=== PATIENT | male | born 1990 | race Caucasian/White ===

== ENCOUNTER 2021-11-06 17:24 | Emergency (ER) | payer SELFPAY ==
[~2021-11-06] VITALS: Ht 185.4 cm; Wt 83.9 kg
[2021-11-06 17:24] VITALS: BP 119/79
[2021-11-06] MEDS ORDERED: IBUP-1955 PO (17:46)
--- NOTE | 2021-11-06 18:11 | NUR ---
Patient discharged to home in stable condition. Written and verbal after care instructions given. Patient verbalizes understanding of instruction.
== END 2021-11-06 18:11 | disposition home or self-care (01) ==
LOC: ER 17:28
DX: M25.571 Pain in right ankle and joints of right foot (principal)
CPT/HCPCS: 73610-TC; 73630-TC